=== PATIENT | female | born 1950 | race Caucasian/White ===

== ENCOUNTER 2016-04-26 05:39 | Day surgery (SDC) | payer BC, OTHER ==
[2016-04-03 15:17] VITALS: BMI 24.0
--- NOTE | 2016-04-03 15:55 | PAT Medication Instructions ---
Service Date Apr 03, 2016. Current Home Medication List Albuterol (Ventolin), 2 PUFFS INH QID PRN Beclomethasone Dip (Qvar), 2 PUFFS INH BID Calcium/Vitamin D (Os-Denys 500 Plus D), 1 TAB PO DAILY Glucosamine Sulfate (Glucosamine), 1,000 MG PO DAILY Mometasone Furoate-Formoterol (Dulera 100/5 Mcg), 1 AER INH QAM Multivitamin (Multivitamin), 1 TAB PO DAILY [Essential Oils], 1 DOSE PO DAILY Medication Instructions For Your Scheduled Surgery - Hold the following medications 2 weeks prior to surgery: Glucosamine Sulfate (Glucosamine), 1,000 MG PO DAILY - Hold the following medications the morning of surgery: [Essential Oils], 1 DOSE PO DAILY Multivitamin (Multivitamin), 1 TAB PO DAILY Calcium/Vitamin D (Os-Denys 500 Plus D), 1 TAB PO DAILY - Take the following medications the morning of surgery with a sip of water: Mometasone Furoate-Formoterol (Dulera 100/5 Mcg), 1 AER INH QAM Albuterol (Ventolin), 2 PUFFS INH QID PRN (bring with you to hospital morning of surgery) Beclomethasone Dip (Qvar), 2 PUFFS INH BID - Take the following medications as scheduled the night before surgery: Albuterol (Ventolin), 2 PUFFS INH QID PRN Beclomethasone Dip (Qvar), 2 PUFFS INH BID If you have any questions please call us at [phone] (Umu Hand PA-C) or [phone] or [phone]
[2016-04-03 16:21] LABS: BASO % 0.6 %; BASO ABS # 0.03 K/uL (0-0.2); COMPLETE YES; EOS % 2.1 %; IG% 0.2 %; LYMPH % 31.9 %; LYMPH ABS # 1.52 K/uL (1.2-3.4); MEAN CELL VOLUME 88.4 fL (80-100); MEAN CORPUSCULAR HEMOGLOBIN 30.2 pg (25-34); MEAN CORPUSCULAR HGB CONC 34.1 g/dl (32-36); MEAN PLATELET VOLUME 10.1 fL (7.4-10.4); MONO % 11.1 %; NEUT % 54.1 %; PLATELET COUNT 204 K/uL (130-400); RED BLOOD COUNT 4.64 M/uL (4.2-5.4); WHITE BLOOD COUNT 4.77 K/uL (4.8-10.8)
[2016-04-03 16:32] LABS: MANUAL MICROSCOPIC REQUIRED? NO; REVIEW REQ? NO; URINE APPEARANCE CLEAR (CLEAR); URINE BILIRUBIN NEG (NEG); URINE COLOR YELLOW; URINE NITRITE NEG (NEG); URINE PH 7.5 (4.5-7.5); URINE SPECIFIC GRAVITY 1.009 (1.000-1.030); UROBILINOGEN NEG (NEG)
[2016-04-03 16:33] LABS: INR 0.9 (0.9-1.1); PARTIAL THROMBOPLASTIN RATIO 1.1; PROTHROMBIN TIME (PATIENT) 10.1 SECONDS (9.0-12.0)
[2016-04-03 16:42] LABS: BUN/CREATININE RATIO 18.9 (10-20); CREATININE 0.73 mg/dl (0.60-1.20); POTASSIUM 4.2 mmol/L (3.5-5.1)
--- NOTE | 2016-04-03 16:44 | DIAGNOSTIC IMAGING REPORT ---
CHEST PREADMISSION(PA/LAT) CLINICAL HISTORY: PAT preoperative evaluation COMPARISON STUDY: No previous studies for comparison. FINDINGS: The bones soft tissues and hemidiaphragms are normal. The cardiomediastinal silhouette is normal. The lungs are clear. The pulmonary vasculature is normal. IMPRESSION: Negative chest. Electronically signed by: Rony Madsen M.D. 04/03/2016 4:42 PM
[2016-04-03 17:05] LABS: CALCIUM 9.3 mg/dl (8.5-10.1)
--- NOTE | 2016-04-25 20:19 | HISTORY & PHYSICAL EXAMINATION ---
DATE OF ADMISSION: 04/26/2016 SUBJECTIVE AND CHIEF COMPLAINT: Right foot pain. HISTORY OF PRESENT ILLNESS: This is a patient who sustained an injury to her right foot while hiking in 1994. Since that time she has had persistent worsening pain and worsening degenerative arthritis within the right first MTP joint. She has tried shoe changes and NSAID. She is now having a large bone spur at the joint which is very painful. She is now being set up for surgical treatment. PAST MEDICAL HISTORY: History of palpitations, asthma. FAMILY HISTORY: Noncontributory. SOCIAL HISTORY: The patient was a jbvrmae-qhck-hpw-day smoker for approximately 10 years, she quit in 1998. She denies alcohol use. PAST SURGICAL HISTORY: Varicose vein surgery in April 2007. ALLERGIES: Please note she lists ALLERGIES TO LATEX, AMOXICILLIN AND DOXYCYCLINE. She does have ALLERGIES TO CATS AND DUST WELL SEASONAL ALLERGIES. CURRENT MEDICATIONS: Dulera, calcium supplement, multivitamin, Vagifem, Zyrtec, albuterol HFA, and Qvar. PHYSICAL EXAMINATION: GENERAL: The patient is alert and oriented x3. She is in no acute distress. She is a well-dressed, well-nourished 65-year-old female. Her affect is appropriate. CARDIOVASCULAR: Heart has a regular rhythm and rate without murmurs. LUNGS: Clear to auscultation bilateral. EXTREMITIES: Dorsalis pedis, posterior tib pulse +2/4. Cap refill is less than 2 seconds. LYMPHATIC: No evidence of any swollen lymph nodes. MUSCULOSKELETAL: The patient has an antalgic gait favoring the right lower extremity. Upon inspection of right lower extremity, there is swelling noted of the first MTP joint. There is also bony deformity noted. With palpation, she has tenderness at the first MTP joint. She has limited range of motion secondary to obstruction. She also has decrease in strength. SKIN: There are no scars, rashes or ulcers noted. NEUROLOGIC: Sensation normal and intact distally. X-RAY EXAM: Multiple views of the right foot demonstrate severe osteoarthritis of the right first MTP joint with spurring noted. ASSESSMENT AND DIAGNOSES: Right first metatarsophalangeal osteoarthritis. PLAN: Above assessment was discussed with patient. At this time it is recommended the patient undergo a right foot first MTP Arthrosurface hemiarthroplasty. All potential risks, benefits, complications, alternatives and rehab have been discussed with patient. At this time she wishes to proceed with the surgery as indicated. She will be scheduled for the surgery on 04/26/2016.
[~2016-04-26] VITALS: Ht 154.9 cm; Wt 59.5 kg
[~2016-04-26 05:39] MED LIST: ALBUAER2 INH; CALC500C70 PO; ESTR10TA PV; GLUC10007 PO; MOME100A INH; MULT-506 PO; PEPPOIL TOP; QVRINH40 INH
[2016-04-26] MEDS ORDERED: CLINDAMYCIN 600 MG/54 ML D5W IV SCH (06:00)
[2016-04-26] MEDS ORDERED: LACTATED RINGER'S 1000ML 1,000 ML IV SCH (06:00)
[2016-04-26 06:13] VITALS: BP 146/84; PULSE 74; TEMP 36.7; O2SAT 98; Ht 154.9 cm; Wt 59.5 kg
[2016-04-26] MEDS ORDERED: DEXAMETHASONE SOD INJ 4 MG/ML VIAL ONE ×2 (06:21→09:03)
[2016-04-26] MEDS ORDERED: BUPIVACAINE/EPINEPHRINE 0.25% 1:200,000 30 ML VIAL ONE (06:21)
[2016-04-26] MEDS ORDERED: FENTANYL CITRATE INJ 50 MCG/1 ML 2 ML VIAL ONE (07:03)
[2016-04-26] MEDS ORDERED: MIDAZOLAM HCL 1 MG/ML 2ML VIAL ONE (07:03)
--- NOTE | 2016-04-26 07:29 | History & Physical Bridge Note ---
H&P Re-Evaluation Bridge Note: I have examined the patient, reviewed the History & Physical and in the interval since the performance of the History & Physical I have noted the following changes of clinical significance: No changes noted
[2016-04-26] MEDS ORDERED: EpHEDrine SULFATE INJ 50 MG/ML AMP IV PRN (08:00)
[2016-04-26] MEDS ORDERED: ONDANSETRON INJ 2 MG/ML 2 ML VIAL IV PRN (08:00)
[2016-04-26] MEDS ORDERED: FENTANYL CITRATE INJ 50 MCG/1 ML 2 ML VIAL IV PRN (08:00)
[2016-04-26] MEDS ORDERED: ATROPINE SULFATE 0.1 MG/ML 5ML SYR IV PRN (08:00)
[2016-04-26] MEDS ORDERED: BACITRACIN 50000 UNIT VIAL IR ONE (08:41)
[2016-04-26] MEDS ORDERED: OXYCODONE/ACETAMINOPHEN 5-325 TAB PO PRN (08:45)
[2016-04-26] MEDS ORDERED: BECLOMETHASONE HFA 40 MCG INHALER INH PRN (08:45)
[2016-04-26] MEDS ORDERED: ALBUTEROL HFA 8 GM INHALER INH PRN (08:45)
[2016-04-26] MEDS ORDERED: OXYC-57 PO (08:49)
--- NOTE | 2016-04-26 08:51 | Discharge Instructions ---
Discharge Instructions Admission Reason for Admission: Right Foot Osteoarthritis Discharge Discharge Diagnosis / Problem: right 1st metatarsophalangeal osteoarthritis Discharge Goals Goal(s): Decrease discomfort, Improve function Activity Recommendations Activity Limitations: as noted below Lifting Limitations: until after follow-up appointment Exercise/Sports Limitations: until after follow-up appointment May Resume Sexual Activity: when tolerated Shower/Bathe: keep incision dry (Keep dressing on until follow up) Driving or Machine Use: No driving until pain med use has stopped. Weightbearing Status: Right partial (Heel weightbearing only if tolerated) . Instructions / Follow-Up Instructions / Follow-Up ACTIVITY RECOMMENDATIONS: Limitations: Heel weight bearing only if able to tolerate. SPECIAL CARE INSTRUCTIONS: * Some drainage onto the dressing is normal and is no cause for alarm. * Some swelling is natural especially after walking. * When resting, keep your foot elevated above the level of your heart. * Call [facility] if you notice: -Increased drainage -Fever over 101 degrees F -Severe constant pain BANDAGE: * Leave bandage/cast in place unless otherwise directed. * Keep bandage/cast dry at all times. PIN CARE: * Leave pins alone. * If pins come loose or fall out, notify physician. FOLLOW UP VISIT WITH DR. HAMMER If appointment is not already scheduled: Please call [facility] after you get home today to schedule a follow-up appointment for [address] Hammer at . Current Hospital Diet Patient's current hospital diet: Discharge Diet Recommended Diet: Regular Diet Procedures Procedures Performed: Right Foot First Metatarsophalangeal Arthrosurface Hemiarthroplasty Pending Studies Studies pending at discharge: no Medical Emergencies . Who to Call and When: Medical Emergencies: If at any time you feel your situation is an emergency, please call [phone] immediately. . Non-Emergent Contact Non-Emergency issues call your: Surgeon Call Non-Emergent contact if: temperature is above 101, your pain is not controlled, your pain is worsening, wound has increased drainage, wound has increased redness . "Provider Documentation" section prepared by Jackson Gonzalez. VTE Core Measure Inpt VTE Proph given/why not?: Other Anticoagulation (Aspirin 81 mg by mouth every 12 hours for 14 days)
--- NOTE | 2016-04-26 08:52 | [facility] Post Operative Brief Note ---
Immediate Operative Summary Operative Date Apr 26, 2016. Pre-Operative Diagnosis Right first metatarsophalangeal degenerative joint disease, Hallux Rigidus Post-Operative Diagnosis Right first metatarsophalangeal degenerative joint disease, Hallux Rigidus Procedure(s) Performed Right Foot First Metatarsophalangeal Arthrosurface Hemiarthroplasty Surgeon Dr. Julio Brunham [employer] Specialist Surgeon(s) Huy Ceja PA-C Estimated Blood Loss 2cc Findings See dict Specimens None Drains None Anesthesia GLMA w/ popliteal block Complication(s) None Disposition Recovery Room / PACU
[2016-04-26] MEDS ORDERED: CALCIUM 600MG + VIT D 400 IU TAB PO SCH (09:00)
[2016-04-26] MEDS ORDERED: MULTIVITAMIN TAB PO SCH (09:00)
[2016-04-26] MEDS ORDERED: PROPOFOL IV EMULSION 10 MG/ML 20 ML VIAL IV ONE (09:03)
[2016-04-26] MEDS ORDERED: ONDANSETRON INJ 2 MG/ML 2 ML VIAL ONE (09:03)
[2016-04-26] MEDS ORDERED: LIDOCAINE HCL 2% 2 ML VIAL (20MG/ML) ONE (09:03)
--- NOTE | 2016-04-26 09:15 | OPERATIVE REPORT ---
DATE OF OPERATION: 04/26/2016 PREOPERATIVE DIAGNOSES: 1. Right first metatarsophalangeal joint degenerative joint disease. 2. Hallux rigidus. POSTOPERATIVE DIAGNOSIS: Same. PROCEDURE: Right foot first metatarsophalangeal joint Arthrosurface hemiarthroplasty. SURGEON: Dr. Burnham. BALANCE WHEEL HAND FILER: Huy Ceja PA-C who was present for patient positioning, sterile prep and drape, management of retractors and instruments. He was present through the critical portions of the case including wound closure, application of sterile dressing and transport of the patient to recovery. ANESTHESIA: General LMA with popliteal block. SPECIMENS: None. DRAINS: None. COMPLICATIONS: None. BLOOD LOSS: 2 mL. PERTINENT HISTORY: This is a 65-year-old woman who has had chronic progressive ongoing right foot pain and deformity with loss of function of the great toe. She attempted conservative management including shoe wear modification, activity modification, anti-inflammatories, rest, shoe inserts, topical analgesics and steroid injections. She failed all measures. She had radiographically significant loss of joint space of the first metatarsophalangeal joint with marginal osteophytes, subchondral sclerosis and subchondral cysts. The patient was scheduled for surgery as indicated. All potential risks, benefits, complications, alternatives, rehab, potential for incomplete relief of symptoms, need for further surgery, DVT, PE, , persistent pain, swelling, scarring, weakness, neurovascular injury, wound complications, hardware failure, bone fracture were discussed with the patient. The patient decided to proceed with the procedure as indicated. OPERATION AND FINDINGS: PROCEDURE: After popliteal block was administered, the patient was taken to the operative suite, placed supine on the operating room table. After reviewing consent and identification of proper operative site, the patient was anesthetized, LMA was placed. Tourniquet was placed high on the right thigh over cast padding. Right lower extremity was then sterilely prepped and draped in the usual fashion, elevated and exsanguinated with an Esmarch bandage. Esmarch tourniquet was applied over sterile surgical towel at the level of the ankle. The pneumatic tourniquet was not used during the case. Next, a 15 blade scalpel was used to make an incision over the dorsal aspect of the first metatarsophalangeal joint. The incision was then deepened through the subcutaneous tissue. Meticulous hemostasis was achieved with electrocautery. Full thickness skin flaps were developed. The extensor hallucis longus was identified, freed, retracted, and protected laterally. Next, a Weitlaner retractor was placed in the incision and then the dorsal capsule and extensor brevis was then incised in line with skin incision, elevated both medially and laterally. Next, a hypertrophic synovium was encountered and this was resected with a rongeur. Next, the capsule was then retracted with a rongeur and a 15 blade scalpel was used to release the capsular attachments of the first metatarsophalangeal joint dorsally, medially and laterally. Next, a McGlamry elevator was placed into the joint between the first metatarsal and the sesamoids. This was then hyperplantarflexed to release soft tissue contracture. Next, the rongeur was used to resect marginal osteophytes at the proximal phalanx of the great toe. Next, the wound was copiously irrigated with sterile normal saline. This was then followed by use of a guide pin and under fluoroscopic assistance was placed essentially into the center-center position of the first metatarsal. Next, the initial reamer was passed over the guidepin and used to ream for the post. Next, the bone tap was then used to tap the first metatarsal followed by irrigation with copious amounts of sterile normal saline with bacitracin and then implantation of the threaded post. This was countersunk approximately 1-1.25 mm. Next, the Gale taper alignment zohra was then placed into the threaded post followed by measurement of the first metatarsal head. Next, appropriate dorsal phalange reamer was then placed into the threaded posts and then used to ream the dorsal phalange of the first metatarsal. Next, this was irrigated with sterile normal saline. A trial was then placed gently into the Lam taper of the threaded post and then a sagittal saw was used to resect osteophytes circumferentially from around the trial within the first metatarsal head. Next, after excess bone was then excised wound was irrigated once again with sterile normal saline. This was then followed by impaction of the final implant into the threaded post and radiographs were obtained confirming position and alignment. Next, the wound was once again irrigated with sterile normal saline. The dorsal capsule was closed using 3-0 Vicryl suture then followed by closure of the dermis with buried interrupted 3-0 Vicryl x2 sutures and the skin was then closed using 4-0 nylon. Next, sterile compressive forefoot dressing was applied overwrapped with Coban. The tourniquet was released. The patient was awakened and taken to recovery in stable condition. I attest to the content of the Intraoperative Record and any orders documented therein. Any exceptio ns are noted below.
--- NOTE | 2016-04-26 09:42 | Anesthesiology Progress Note ---
Anesthesia Post Op Note Date & Time Apr 26, 2016 at 09:41 Vital Signs Pain Intensity: 0 Vital Signs Past 12 Hours Date Time Temp Pulse Resp B/P Pulse Ox O2 Delivery O2 Flow Rate FiO2 04/26/16 09:20 74 20 123/77 100 Nasal Cannula 2 04/26/16 09:10 75 20 117/75 100 Nasal Cannula 2 04/26/16 09:01 36.3 76 18 128/77 100 Mask 10 04/26/16 06:13 36.7 74 20 146/84 98 Room Air Notes Mental Status: alert / awake / arousable, participated in evaluation Pt Amnestic to Procedure: Yes Nausea / Vomiting: adequately controlled Pain: adequately controlled Airway Patency, RR, SpO2: stable & adequate BP & HR: stable & adequate Hydration State: stable & adequate Anesthetic Complications: no major complications apparent Block working well in pacu
[2016-04-26 09:45] VITALS: BP 138/78; PULSE 76; TEMP 36.3; O2SAT 99
[2016-04-26 10:15] VITALS: BP 129/82; PULSE 81; O2SAT 98
[2016-04-26 10:45] VITALS: BP 124/77; PULSE 89; TEMP 36.8; O2SAT 100
--- NOTE | 2016-04-26 11:23 | DIAGNOSTIC IMAGING REPORT ---
INTRAOPERATIVE RIGHT FOOT 2 VIEWS CLINICAL HISTORY: First MTP arthroplasty COMPARISON STUDY: No previous studies for comparison. FINDINGS: 2 intraoperative fluoroscopic spot images are provided for interpretation. 8 seconds of fluoroscopic time was utilized. 2 images demonstrate postsurgical changes of a right first metatarsal phalangeal joint hemiarthroplasty. There is no dislocation. IMPRESSION: Intraoperative radiographs demonstrating a right first metatarsal phalangeal joint prosthesis. Electronically signed by: Keagan King M.D. 04/26/2016 11:20 AM Dictated Date/Time: 04/26/2016 11:19 AM
== END 2016-04-26 11:15 | disposition home or self-care (01) ==
LOC: C.ACU 05:39
PROVIDERS: ATTEND Orthopaedic Surgery Sports Medicine
DX: M19.079 Primary osteoarthritis, unspecified ankle and foot (principal); M20.21 Hallux rigidus, right foot; J45.909 Unspecified asthma, uncomplicated; Z88.0 Allergy status to penicillin; Z88.8 Allergy status to other drugs, medicaments and biological substances; Z87.891 Personal history of nicotine dependence